=== PATIENT | male | born 1990 | race African-American/Black ===

== ENCOUNTER 2019-02-01 00:33 | Emergency (ER) | payer SELFPAY ==
--- NOTE | 2019-02-01 01:00 | ER Document Report ---
ED General - General Chief Complaint: Nose Bleed Stated Complaint: NOSE BLEED Time Seen by Provider: 02/01/19 00:58 Primary Care Provider: ADDY DELATORRE MD [ACTIVE STAFF] - Follow up in 3-5 days (primary care. ) Notes: Patient is a 28-year-old male hypertension that presents to the emergency department for chief complaint of nosebleed. Patient states that he has been having a nosebleed since this morning, he states his been essentially constant, every time he blows his nose some blood and some small clots, as well. He states he has been off his blood pressure medication for a few weeks as he ran out of them he is from [place] and working here for a few months. He states that this is the longest nosebleed is had, he denies being on blood thinners or any other medications. Denies feeling lightheadedness, dizziness, headache, nausea, vomiting or abdominal pain. Past Medical History: Hypertension Past Surgical History: Denies surgical history Social History: Admits to smoking cigarettes, and occasional alcohol use, denies illicit drug use. Family History: Reviewed and noncontributory for presenting illness Allergies: Reviewed, see documented allergy list. REVIEW OF SYSTEMS: Other than noted above, the 12 point review of systems was reviewed with the patient and were negative, all pertinent findings are included in the HPI. PHYSICAL EXAMINATION: Vital signs reviewed, nursing noted reviewed. GENERAL: Well-appearing, well-nourished and in no acute distress. HEAD: Atraumatic, normocephalic. EYES: Eyes appear normal, extraocular movements intact, sclera anicteric, conjunctiva are normal. ENT: oropharynx clear without exudates. Moist mucous membranes. The right nasal septum appears friable, no brisk bleeding at this time, no blood in the posterior pharynx, nares overall are patent. NECK: Normal range of motion, supple without lymphadenopathy LUNGS: Breath sounds clear to auscultation bilaterally and equal. No wheezes rales or rhonchi. HEART: Regular rate and rhythm without murmurs ABDOMEN: Soft, nontender, normoactive bowel sounds. No rebound, guarding, or rigidity. No masses appreciated. EXTREMITIES: Nontender, good range of motion, no pitting or edema. NEUROLOGICAL: No focal neurological deficits. Moves all extremities spontaneously Motor and sensory grossly intact on exam. PSYCH: Normal mood, normal affect. SKIN: Warm, Dry, normal turgor, no rashes or lesions noted on exposed skin TRAVEL OUTSIDE OF THE [place] IN LAST 30 DAYS: No Past Medical History - Social History Smoking Status: Never Smoker Family History: Reviewed & Not Pertinent Physical Exam - Vital signs Vitals: Temp Pulse Resp BP Pulse Ox 98.5 F 92 16 184/104 H 98 02/01/19 00:42 02/01/19 00:42 02/01/19 00:42 02/01/19 00:42 02/01/19 00:42 Course - Re-evaluation Re-evalutation: Patient seen and examined vital signs reviewed. Patient was evaluated and treated as appropriate for the patient's presenting symptoms and complaint, with consideration of any critical or life threatening conditions that may be associated with their obtained history and exam as noted above. Patient was treated with chemical cautery with silver nitrate and Afrin, to the right nasal septum The patient was re-evaluated and was stable, patient was also treated with clonidine 0.2 mg for his blood pressure, I repeated exam, he did not have any further nosebleed. Evaluation was most consistent with epistaxis and uncontrolled hypertension, will give the patient a prescription for clonidine as he was previous he prescribed this, we will give him 2 weeks worth, advised to follow-up with her primary care, advised to keep his nose moist to prevent further epistaxis. Plan of care was discussed with the patient at this point, after careful consideration I feel that that patient can be discharged from the emergency department, the patient was educated treatments and reasons to return to the emergency department based on their presumed diagnosis as noted above, they were advised to followup with a primary care physician in 2-3 days. Patient was agreeable to plan of care. *Note is created using voice recognition software and may contain spelling, syntax or grammatical errors. - Vital Signs Vital signs: Temp Pulse Resp BP Pulse Ox 98.5 F 89 21 H 161/114 H 97 02/01/19 00:42 02/01/19 01:42 02/01/19 03:24 02/01/19 03:24 02/01/19 03:24 Discharge - Discharge Clinical Impression: Epistaxis, Uncontrolled hypertension Condition: Stable Disposition: HOME, SELF-CARE Instructions: High Blood Pressure, Requiring Treatment ([facility]), Nosebleed Instructions ([facility]) Additional Instructions: Please follow-up with a primary care physician in the area, as you will need your blood pressure under better control, please take the clonidine as prescribed, and follow-up, please keep your nose as moist as possible, you can use [id number]-yzhlaet saline nasal spray to help this. Prescriptions: RX: Clonidine HCl [Catapres 0.1 mg Tablet] 0.1 mg PO Q12 #30 tablet Forms: Elevated Blood Pressure Referrals: ADDY DELATORRE MD [ACTIVE STAFF] - Follow up in 3-5 days (primary care. )
[2019-02-01] MEDS ORDERED: OXYMETAZOLINE HCL 0.05% NASAL SPRAY 15 ML BOTTLE NASL ONE (01:12)
[2019-02-01] MEDS ORDERED: SILVER NITRATE APPLICATOR 1 APPLIC STICK..EA. 10/PACKAGE TOP ONE (01:12)
[2019-02-01] MEDS ORDERED: CLONIDINE HCL 0.2 MG TABLET PO ONE (01:12)
[2019-02-01 03:39] VITALS: BP 161/114
== END 2019-02-01 03:33 | disposition home or self-care (01) ==
LOC: ER 00:33
DX: R04.0 Epistaxis (principal); F17.210 Nicotine dependence, cigarettes, uncomplicated; I10 Essential (primary) hypertension
CPT/HCPCS: 99283; J3490